=== PATIENT | female | born 1965 | race American Indian/Alaskan Native ===

== ENCOUNTER 2020-03-21 09:41 | Outpatient (CLI) | payer OTHER ==
--- NOTE | 2020-03-21 13:12 | Magnetic Resonance Report ---
MRI RIGHT KNEE WITHOUT CONTRAST INDICATION / CLINICAL INFORMATION: RIGHT KNEE PAIN. 54-year-old female. TECHNIQUE: Multiplanar, multisequence MR images were obtained. No contrast used. COMPARISON: None available. FINDINGS: ACL: No significant abnormality. PCL: No significant abnormality. DISTAL QUADRICEPS TENDON: No significant abnormality. PATELLAR TENDON: No significant abnormality. MEDIAL MENISCUS: Diminutive appearance of the body segment likely representing diffuse central frayin g. No focal tear is evident. There is peripheral extrusion of the body segment. LATERAL MENISCUS: No significant abnormality. POSTEROLATERAL CORNER: No significant abnormality. MCL: No significant abnormality. LCL: No significant abnormality. DISTAL IT BAND: No significant abnormality. PATELLOFEMORAL ALIGNMENT: No significant abnormality. ARTICULAR CARTILAGE: Mild patellofemoral chondrosis. Mild lateral tibiofemoral chondrosis. Moderate m edial tibiofemoral chondrosis with cartilage thinning and irregularity. JOINT SPACE: Small effusion with synovitis. Small popliteal cyst is present. No intra-articular maddy s. BONES: No significant bone marrow edema. No fracture. No osseous lesion. SOFT TISSUES: Mild pretibial edema. ADDITIONAL FINDINGS: None. IMPRESSION: 1. Diminutive appearance of the medial meniscus body segment likely representing central fraying. Alt sadiq no focal tear is evident, there is peripheral extrusion of the body segment. 2. Moderate medial tibiofemoral chondrosis. 3. Small effusion with synovitis. 4. Small popliteal cyst. Report dictated by: Kevin Smith MD Report dictated on: 03/21/2020 11:23 AM I have reviewed the images, agree with this report, and edited this report as needed. Signer Name: Tex James MD Signed: 03/21/2020 1:07 PM Workstation Name: [id number]
== END 2020-03-21 09:42 | disposition home or self-care (01) ==
LOC: MRI 09:41
PROVIDERS: ATTEND Orthopaedic Surgery
DX: M25.461 Effusion, right knee (principal); M94.8X6 Other specified disorders of cartilage, lower leg; M65.861 Other synovitis and tenosynovitis, right lower leg; M79.89 Other specified soft tissue disorders
CPT/HCPCS: 73721

== ENCOUNTER 2020-04-11 09:05 | Day surgery (SDC) | payer OTHER ==
[~2020-04-11 09:05] MED LIST: BUPIVACAINE/PF (0.5%) 5 MG/1 ML 30 ML VIAL INFILTRATI ONE; LIDOCAINE (1%) 10 MG/1 ML VIAL 20 ML MDV ONE
[2020-04-11] MEDS ORDERED: BUPIVACAINE/PF (0.5%) 5 MG/1 ML 30 ML VIAL INFILTRATI ONE (11:00)
[2020-04-11] MEDS ORDERED: LIDOCAINE (1%) 10 MG/1 ML VIAL 20 ML MDV INFILTRATI ONE (11:00)
[2020-04-11] MEDS ORDERED: LIDOCAINE (1%) 10 MG/1 ML VIAL 20 ML MDV ONE (11:07)
--- NOTE | 2020-04-11 13:30 | XRay Report ---
RIGHT KNEE 2 VIEWS INDICATION: POST OP RT KNEE NERVE BLOCK.. COMPARISON: None. IMPRESSION: 2 fluoroscopic images of the right knee are presented during surgery for right knee nerv e block. There is needle placement on both sides of the distal femur and one side of the proximal tib ia. The bony structures are intact. Minimal osteoarthritic changes are identified at the right knee. No acute osseous findings. Please correlate with the procedural report by Dr. Peterson as needed. Signer Name: Reinaldo Singh Jr, MD Signed: 04/11/2020 1:25 PM Workstation Name: [id number]
--- NOTE | 2020-04-11 14:17 | Procedure Note ---
Date of procedure: 04/11/20 Pre-op diagnosis: Right knee pain Post-op diagnosis: same Procedure: Right geniculate Nerve Block under C-arm fluroscopy procedure The patient taken to the operating room where he was place on the table supine with padded triangular pad placed along the potileal fossa. The right knee prepped and draped in usual sterile fashion. 22-gauge spinal needle used to locate areas for injection, the medial and lateral supracondylar ridges, 2 cm proximal to the superior pole of the patella as well as the medial border of the proximal tibia. These areas were anesthized using lidocaine 1% followed by placement of spinal needle near the medial, and lateral geniculate nerves. A mixture of marcaine and lidocaine injected into the deeper structures. There were no complications noted and he tolerated well. Anesthesia: local Surgeon: CR FOOTE Estimated blood loss: minimal Pathology: none Condition: stable Disposition: observation
[2020-04-11 16:11] VITALS: BP 127/74
== END 2020-04-11 09:06 | disposition home or self-care (01) ==
LOC: OR 09:05
PROVIDERS: ATTEND Orthopaedic Surgery
DX: M25.561 Pain in right knee (principal); F17.210 Nicotine dependence, cigarettes, uncomplicated; F41.9 Anxiety disorder, unspecified; I11.0 Hypertensive heart disease with heart failure; I50.9 Heart failure, unspecified; K21.9 Gastro-esophageal reflux disease without esophagitis; E66.9 Obesity, unspecified; M79.7 Fibromyalgia; M19.90 Unspecified osteoarthritis, unspecified site; F32.9 Major depressive disorder, single episode, unspecified; Z90.710 Acquired absence of both cervix and uterus; Z88.5 Allergy status to narcotic agent; Z87.440 Personal history of urinary (tract) infections; Z79.899 Other long term (current) drug therapy; Z98.51 Tubal ligation status; Z98.890 Other specified postprocedural states

== ENCOUNTER 2020-04-25 08:06 | Day surgery (SDC) | payer OTHER ==
[~2020-04-25 08:06] MED LIST changes: -BUPIVACAINE/PF (0.5%) 5 MG/1 ML 30 ML VIAL INFILTRATI ONE; +LACTATED RINGERS 1,000 ML IV SCH; -LIDOCAINE (1%) 10 MG/1 ML VIAL 20 ML MDV ONE; +MIDAZOLAM 2 MG/2 ML INJ IV NR
[2020-04-25] MEDS ORDERED: BACTERIOSTATIC SODIUM CHLORIDE 0.9% 30 ML VIAL INFILTRATI ONE (08:18)
--- NOTE | 2020-04-25 09:22 | Anesthesia Consultation ---
Anesthesia Consult and Med Hx Date of service: 04/25/20 - Airway Anesthetic Teeth Evaluation: Poor ROM Head & Neck: Adequate Mental/Hyoid Distance: Adequate Mallampati Class: Class III Intubation Access Assessment: Possibly Difficult - Pulmonary Exam CTA: Yes - Cardiac Exam Cardiac Exam: RRR - Pre-Operative Health Status ASA Pre-Surgery Classification: ASA3 Proposed Anesthetic Plan: MAC - Pulmonary Hx Smoking: Yes (1/2 PPD smoker quit 1 month) SOB: Yes (BERNARD chronic) Hx Sleep Apnea: No (ANNIE PRE SCREEN HIGH RISK) - Cardiovascular System Hx Hypertension: No Hx Heart Attack/AMI: No (hx CHF, reports normal EF on recent TTE) Hx Percutaneous Transluminal Coronary Angioplasty (PTCA): No Hx Cardia Arrhythmia: No - Central Nervous System Hx Back Pain: Yes Hx Psychiatric Problems: Yes (anxiety) - Gastrointestinal Hx Gastroesophageal Reflux Disease: Yes (asymptomatic today) - Endocrine Hx Renal Disease: No Hx Liver Disease: No Hx Insulin Dependent Diabetes: No Hx Non-Insulin Dependent Diabetes: No Hx Thyroid Disease: No - Other Systems Hx Obesity: Yes (BMI-44.3 KG) - Additional Comments Anesthesia Medical History Comments: PMH RA on methotrexate and prednisone 5mg 3x/wk.
--- NOTE | 2020-04-25 09:23 | Anesthesia Day of Surgery ---
Anesthesia Day of Surgery - Day of Surgery Patient Examined: Yes Patient H&P Reviewed: Yes Patient is NPO: Yes Beta Blockers: Yes
[2020-04-25] MEDS ORDERED: MIDAZOLAM 10 MG/5 ML ORAL LIQD PO NR (10:00)
[2020-04-25] MEDS ORDERED: SUCCINYLCHOLINE CHLORIDE 200 MG/10 ML INJ MDV ONE (10:08)
[2020-04-25] MEDS ORDERED: dexAMETHasone 20 MG/5 ML VIAL ONE (10:08)
[2020-04-25] MEDS ORDERED: fentaNYL 100 MCG/2 ML INJ ONE (10:08)
[2020-04-25] MEDS ORDERED: ePHEDrine SULFATE 50 MG/1 ML INJ ONE (10:08)
[2020-04-25] MEDS ORDERED: LIDOCAINE MPF (2%) 20 MG/1 ML VIAL 5 ML ONE (10:08)
[2020-04-25] MEDS ORDERED: PHENYLEPHRINE/NS 1,000 MCG/10 ML SYRINGE (OR USE) IV ONE (10:08)
[2020-04-25] MEDS ORDERED: propofoL 200 MG/20 ML VIAL IV ONE (10:08)
[2020-04-25] MEDS ORDERED: ONDANSETRON 4 MG/2 ML INJ ONE (10:08)
[2020-04-25] MEDS ORDERED: KETAMINE/STERILE WATER 50 MG/ML SYRINGE ONE (10:17)
[2020-04-25] MEDS ORDERED: MIDAZOLAM 2 MG/2 ML INJ ONE (10:17)
[2020-04-25] MEDS ORDERED: LIDOCAINE (1%) 10 MG/1 ML VIAL 20 ML MDV ONE (10:18)
[2020-04-25] MEDS ORDERED: BUPIVACAINE/PF (0.5%) 5 MG/1 ML 30 ML VIAL INFILTRATI ONE ×2 (10:18→10:41)
[2020-04-25] MEDS ORDERED: LIDOCAINE (1%) 10 MG/1 ML VIAL 20 ML MDV INFILTRATI ONE (10:42)
--- NOTE | 2020-04-25 11:35 | XRay Report ---
RIGHT KNEE 2 VIEWS INDICATION: RADIOFREQUENCY RIGHT KNEE. COMPARISON: 04/11/2019 IMPRESSION: 23 seconds of fluoroscopy time was provided by radiology during right knee radiofrequenc y ablation by orthopedics. 3 fluoroscopic images of the right knee are presented demonstrating needle placement along the distal femur and proximal tibia. Please correlate with the procedural report as needed. No acute osseous abnormality is detected. Signer Name: Reinaldo Singh Jr, MD Signed: 04/25/2020 11:30 AM Workstation Name: [id number]
[2020-04-25 11:47] VITALS: BP 137/93
--- NOTE | 2020-04-25 11:52 | Procedure Note ---
Date of procedure: 04/25/20 Pre-op diagnosis: Right knee pain Post-op diagnosis: same Procedure: Geniculate nerve radiofrequency ablation right knee Procedure The patient was brought to the OR and placed in the OR table supine position patient was Given IV and was masked the procedure following this the patient's right knee was prepped and draped in the routine sterile manner. A timeout procedure was done to identify the patient and the correct operative site. Under C-arm visualization the skin was anesthetized with the 1% lidocaine at both the medial and lateral suprapatellar regions as well as the proximal portion of the medial tibial metaphysis. Following this the the introducers radiofrequency ablator introducer probes were inserted into the distal femoral metaphysis close to the bone and midway along the sagittal plane as well as along the proximal tibial metaphysis to be appropriate place simultaneously following this following this the probe were checked for full motor nerve function there did not appear to be any next the radiofrequency ablator was turned on and the nerves were ablated to a temperature of 60C for approximately 2-1/2 minutes each. A mixture of Depo-Medrol and lidocaine was then injected into each location to help with postoperative pain and inflammation. The patient tolerated the procedure there were no complications he was then taken to postanesthesia recovery in a stable condition Anesthesia: none, other (IV sedation) Surgeon: CR FOOTE Estimated blood loss: minimal Pathology: none Condition: stable Disposition: PACU
--- NOTE | 2020-04-25 14:04 | Post Anesthesia Evaluation ---
- Post Anesthesia Evaluation Patient Participated: Yes Airway Patent: Yes Stable Respiratory Function: Yes Nausea/Vomiting: No Temp > 96.8F: Yes Pain Manageable: Yes Adequeate Hydration: Yes Anesthesia Complications: No
== END 2020-04-25 08:07 | disposition home or self-care (01) ==
LOC: OR 08:06
PROVIDERS: ATTEND Orthopaedic Surgery
DX: M25.561 Pain in right knee (principal); Z88.5 Allergy status to narcotic agent; F17.210 Nicotine dependence, cigarettes, uncomplicated; F41.9 Anxiety disorder, unspecified; Z20.828 Contact with and (suspected) exposure to other viral communicable diseases; I74.2 Embolism and thrombosis of arteries of the upper extremities; I50.9 Heart failure, unspecified; E66.9 Obesity, unspecified; K21.9 Gastro-esophageal reflux disease without esophagitis; M79.10 Myalgia, unspecified site; M06.9 Rheumatoid arthritis, unspecified; F32.9 Major depressive disorder, single episode, unspecified; Z98.890 Other specified postprocedural states; Z79.899 Other long term (current) drug therapy; Z87.440 Personal history of urinary (tract) infections; Z98.51 Tubal ligation status; Z90.710 Acquired absence of both cervix and uterus; Z68.41 Body mass index [BMI] 40.0-44.9, adult
CPT/HCPCS: 64624; 73560; A4649; J0330; J1100; J2250; J2370; J2405; J2704; J3010; J3490; J7120; U0003

== ENCOUNTER 2020-08-12 10:19 | Outpatient (CLI) | payer OTHER ==
--- NOTE | 2020-08-12 13:31 | Mammography Report ---
BILATERAL DIGITAL DIAGNOSTIC MAMMOGRAM WITH CAD CONVENTIONAL, 08/12/2020 LEFT LIMITED BREAST ULTRASOUND CLINICAL INFORMATION / INDICATION: Patient presents for evaluation of an area of palpable concern in the left breast. TECHNIQUE: Digital bilateral mammographic imaging was performed. Spot compression views were obtained . Limited ultrasound was performed. This examination was interpreted with the benefit of Computer-Aid ed Detection (CAD) analysis. COMPARISON: None available FINDINGS: Breast Density: The breasts are almost entirely fatty. MAMMOGRAPHIC FINDINGS: No dominant mass, suspicious calcifications, or architectural distortion in ei ther breast. There is no mammographic abnormality underlying the site of palpable concern in the lowe r inner quadrant of the left breast, therefore targeted ultrasound was subsequently performed. ULTRASOUND FINDINGS: Targeted ultrasound evaluation was performed of the area of interest. Targeted ultrasound of the area of palpable concern in the left breast 8:00 position located 10 cm from the n ipple reveals an oval circumscribed hypoechoic mass versus prominent fat lobule measuring up to 1.5 x 0.6 x 0.8 cm. The mass is parallel. No internal vascularity is demonstrated. IMPRESSION: 1. An oval circumscribed hypoechoic mass versus prominent fat lobule is seen at the site of palpable concern in the left breast and is considered probably benign. Recommend left breast ultrasound in 6 m [facility] to ensure stability. Follow up recommendation: Short term follow up in 6 months. BI-RADS Category 3: Probably Benign. Followup in 6 months. A "normal" or negative report should not discourage follow up or biopsy of a clinically significant f inding. A written summary of these findings will be mailed to the patient. The patient will be entered into a mammography reporting system which will generate a reminder letter for the patient's next appointmen t at the appropriate interval. According to the [employer], yearly mammograms are recommended starting at age 40 and continuing as long as a woman is in good health. Breast MRI is recommended for women with an carlos roximately 20-25% or greater lifetime risk of breast cancer, including women with a strong family his tory of breast or ovarian cancer and women who have been treated for Hodgkin's disease. Signer Name: Nancy Ahuja MD Signed: 08/12/2020 1:26 PM Workstation Name: [id number]
== END 2020-08-12 10:20 | disposition home or self-care (01) ==
LOC: MAMMO 10:19
PROVIDERS: ATTEND Internal Medicine
DX: N63.20 Unspecified lump in the left breast, unspecified quadrant (principal); N64.4 Mastodynia; R92.8 Other abnormal and inconclusive findings on diagnostic imaging of breast
CPT/HCPCS: 77066

== ENCOUNTER 2021-01-31 09:47 | Outpatient (CLI) | payer MEDICARE, OTHER ==
--- NOTE | 2021-01-31 13:05 | Magnetic Resonance Report ---
MR cervical spine wo con INDICATION / CLINICAL INFORMATION: 55 years Female; CERVICALGIA, BACK PAIN. TECHNIQUE: Multisequence, multiplanar images of the cervical spine were obtained. COMPARISON: None available. FINDINGS: CRANIOCERVICAL JUNCTION:No significant abnormality. ALIGNMENT: No significant abnormality. VERTEBRAE:Grossly normal marrow signal and vertebral body height for age. VISUALIZED SPINAL CORD: No significant abnormality. INTERVERTEBRAL DISCS: Grossly normal in height and signal intensity. PMXCL-FL-[id number] ANALYSIS: C2-3: Minimal facet hypertrophy. C3-4: No significant abnormality. C4-5: Minimal, broad-based left paracentral disc protrusion. C5-6: Mild disc bulge and small, broad-based right paracentral disc protrusion. C6-7: Small, broad-based left paracentral disc protrusion and mild facet hypertrophy. C7-T1: Minimal facet hypertrophy. PARASPINAL SOFT TISSUES: No significant abnormality. ADDITIONAL FINDINGS: None. IMPRESSION: 1. Degenerative changes of the cervical spine as described above. No single, dominant cause for patie nt's symptomatology appreciated. Signer Name: Trevor Ulloa MD, III Signed: 01/31/2021 1:00 PM Workstation Name: [id number]
--- NOTE | 2021-01-31 13:13 | Magnetic Resonance Report ---
MR thoracic spine wo con INDICATION / CLINICAL INFORMATION: 55 years Female; CARVICALGIA, BACK PAIN. TECHNIQUE: Multisequence, multiplanar images of the thoracic spine were obtained. COMPARISON: None available. FINDINGS: ALIGNMENT: Normal thoracic kyphosis without significant scoliosis. VERTEBRAE:Grossly normal marrow signal and vertebral body height for age. Costovertebral, costotransverse, and facet joints demonstrate mild to moderate, multilevel areas of d egenerative change. Overall, no significant foraminal narrowing appreciated. VISUALIZED SPINAL CORD: No significant abnormality. Visualized conus medullaris is grossly normal in appearance. Mild epidural lipomatosis suspected. INTERVERTEBRAL DISCS: No significant abnormality. No dominant herniation or evidence of canal stenosi s. PARASPINAL SOFT TISSUES: No significant abnormality. ADDITIONAL FINDINGS: Small pleural effusions suspected. IMPRESSION: 1. Mild degenerative changes of the thoracic spine as described above. No single, dominant cause for patient's symptomatology seen. No significant canal stenosis or foraminal narrowing seen. Signer Name: Trevor Ulloa MD, III Signed: 01/31/2021 1:07 PM Workstation Name: [id number]
--- NOTE | 2021-01-31 14:44 | XRay Report ---
CERVICAL SPINE 4 VIEWS INDICATION: CERVICALGIA. COMPARISON: None. IMPRESSION: Normal alignment. No significant discogenic DJD or facet arthropathy. No acute osseous or soft tissue abnormality. THORACIC SPINE 2 VIEWS INDICATION: Back pain. COMPARISON: None. IMPRESSION: Normal alignment. Minimal discogenic DJD is noted in the mid thoracic spine. No acute osseous or soft tissue abnormality. Signer Name: Reinaldo Singh Jr, MD Signed: 01/31/2021 2:39 PM Workstation Name: [id number]
== END 2021-01-31 09:48 | disposition home or self-care (01) ==
LOC: MRI 09:47
PROVIDERS: ATTEND Orthopaedic Surgery
DX: M50.323 Other cervical disc degeneration at C6-C7 level (principal); M50.322 Other cervical disc degeneration at C5-C6 level; M50.321 Other cervical disc degeneration at C4-C5 level; M47.814 Spondylosis without myelopathy or radiculopathy, thoracic region; M47.812 Spondylosis without myelopathy or radiculopathy, cervical region
CPT/HCPCS: 72040; 72070; 72141; 72146

== ENCOUNTER 2021-03-17 08:10 | Outpatient (CLI) | payer MEDICARE, OTHER ==
--- NOTE | 2021-03-17 10:10 | Mammography Report ---
LEFT DIGITAL DIAGNOSTIC MAMMOGRAM WITH CAD CONVENTIONAL, 03/17/2021 LEFT LIMITED BREAST ULTRASOUND CLINICAL INFORMATION / INDICATION: Follow-up nodule TECHNIQUE: Digital left mammographic imaging was performed. Spot compression views were obtained. Burt it ultrasound was performed. This examination was interpreted with the benefit of Computer-Aided De tection (CAD) analysis. COMPARISON: Mammography and left breast ultrasound 08/12/2020, mammography 12/19/2019 FINDINGS: Breast Density: The breasts are almost entirely fatty. MAMMOGRAPHIC FINDINGS: In the medial left mid breast approximately 7 8 cm from the nipple at roughly 9:00, a 7 mm mildly ovoid faint nodule is seen which was not as clearly evident previously. This is i n the general region of the similar sized sonographic abnormality though that is more elongated and l arger. Mammographically there may be a small hilum in this density and this could be a small intramam elian node. ULTRASOUND FINDINGS: Targeted ultrasound evaluation was performed of the area of interest. The ovoid benign-appearing solid nodule in the 8:00 position, 8 cm from the nipple, is not significantly change d. This measures approximately 16 mm in length and 5 mm in thickness. No shadowing or vascularity are seen. No other lesions are noted. IMPRESSION: 1. The sonographic abnormality appears stable and is probably a small benign fibroadenoma. I would re commend additional left breast ultrasound in 6 months. 2. Development of a small nodule mammographically in the same general area as the sonographic abnorma lity lobe appearing smaller. Possibly this is a small intramammary node based on shape. I would recom mend follow-up left mammogram in 6 months. Follow up recommendation: As above BI-RADS Category 3: PROBABLY BENIGN. Followup in 6 months. A "normal" or negative report should not discourage follow up or biopsy of a clinically significant f inding. A written summary of these findings will be mailed to the patient. The patient will be entered into a mammography reporting system which will generate a reminder letter for the patient's next appointmen t at the appropriate interval. According to the [employer], yearly mammograms are recommended starting at age 40 and continuing as long as a woman is in good health. Breast MRI is recommended for women with an carlos roximately 20-25% or greater lifetime risk of breast cancer, including women with a strong family his tory of breast or ovarian cancer and women who have been treated for Hodgkin's disease. Signer Name: Rasheed Burciaga MD Signed: 03/17/2021 10:06 AM Workstation Name: [id number]
== END 2021-03-17 08:11 | disposition home or self-care (01) ==
LOC: MAMMO 08:10
PROVIDERS: ATTEND Internal Medicine
DX: N63.24 Unspecified lump in the left breast, lower inner quadrant (principal)